=== PATIENT | male | born 2000 | race African-American/Black ===

== ENCOUNTER 2018-08-13 09:16 | Emergency (ER) | payer OTHER ==
--- NOTE | 2018-08-13 09:49 | RAD ---
3 VIEWS LEFT ANKLE: Date: 08/13/18 COMPARISON: None. HISTORY: Injured foot yesterday in a skating accident with left ankle pain. FINDINGS: Three views of the left ankle show no evidence of acute fracture or dislocation. No degenerative zambrano ges are seen. No soft tissue swelling is present. IMPRESSION: Unremarkable exam. POS: [facility]
[2018-08-13] MEDS ORDERED: Ibuprofen 200 MG TAB ONE (10:14)
== END 2018-08-13 10:36 | disposition home or self-care (01) ==
LOC: ERS 09:16
DX: S93.402A Sprain of unspecified ligament of left ankle, initial encounter (principal); X50.9XXA Other and unspecified overexertion or strenuous movements or postures, initial encounter; Y93.51 Activity, roller skating (inline) and skateboarding
CPT/HCPCS: 29515